=== PATIENT | female | born 1960 | race Caucasian/White ===

== ENCOUNTER → 2016-11-02 | Outpatient (CLI) | payer BC, MEDICARE | LOC: LAB 18:01 | PROVIDERS: ATTEND Internal Medicine Interventional Cardiology | DX: Z53.9 Procedure and treatment not carried out, unspecified reason (principal) ==

== ENCOUNTER → 2016-11-30 | Outpatient (CLI) | payer BC, MEDICARE ==
--- NOTE | 2016-11-30 09:43 | MM ---
Reason for exam: follow-up at short interval from prior study. Last mammogram was performed 8 months ago. History: Patient is postmenopausal. Family history of premenopausal breast cancer in paternal aunt at age 40 and premenopausal breast cancer in maternal cousin. Benign MG stereo VAD BX RT of the right breast, April 25, 2016. Benign MG stereo VAD BX RT of the right breast, April 25, 2016. Cancelled Left Mammotome of the left breast, August 01, 2007. Took hormonal contraceptives for 5 years beginning at age 20. Physical Findings: Nurse did not find any significant physical abnormalities on exam. MG 3D Diag Mammo W/Cad RT CC and MLO view(s) were taken of the right breast. Prior study comparison: April 13, 2016, right breast MG work up mamm w CAD RT. April 08, 2016, bilateral MG 3d screening mammo w/cad. January 21, 2013, bilateral digital screening mammo w/CAD. The breast tissue is heterogeneously dense. This may lower the sensitivity of mammography. Previous mammotome biopsy in the right breast x 2. No significant new findings when compared with previous films. These results were verbally communicated with the patient and result sheet given to the patient on 11/30/16. ASSESSMENT: Negative, BI-RAD 1 RECOMMENDATION: Return to routine screening mammogram schedule for both breasts. Back on schedule for March 2017.
== END ==
LOC: RADUSWWP 08:23
PROVIDERS: ATTEND Surgery
DX: R92.8 Other abnormal and inconclusive findings on diagnostic imaging of breast (principal)
CPT/HCPCS: G0206; G0279

== ENCOUNTER → 2017-06-19 | Outpatient (CLI) | payer BC, MEDICARE ==
--- NOTE | 2017-06-21 09:29 | MM ---
Reason for exam: screening (asymptomatic). Last mammogram was performed 7 months ago. History: Patient is postmenopausal. Family history of premenopausal breast cancer in paternal aunt at age 40 and premenopausal breast cancer in maternal cousin. Benign MG stereo VAD BX RT of the right breast, April 25, 2016. Benign MG stereo VAD BX RT of the right breast, April 25, 2016. Cancelled Left Mammotome of the left breast, August 01, 2007. Took hormonal contraceptives for 5 years beginning at age 20. Physical Findings: A clinical breast exam by your physician is recommended on an annual basis and results should be correlated with mammographic findings. MG 3D Screening Mammo W/Cad Bilateral CC and MLO view(s) were taken. Prior study comparison: November 30, 2016, right breast MG 3d diag mammo w/cad RT. April 13, 2016, right breast MG work up mamm w CAD RT. April 08, 2016, bilateral MG 3d screening mammo w/cad. March 17, 2015, left breast MG work up mamm w CAD LT. January 21, 2013, bilateral digital screening mammo w/CAD. The breast tissue is heterogeneously dense. This may lower the sensitivity of mammography. Previous mammotome biopsy within the right breast x 2. No significant changes when compared with prior studies. ASSESSMENT: Negative, BI-RAD 1 RECOMMENDATION: Routine screening mammogram of both breasts in 1 year.
== END | disposition home or self-care (01) ==
LOC: RADMAMWWP 11:09
PROVIDERS: ATTEND Family Medicine
DX: Z12.31 Encounter for screening mammogram for malignant neoplasm of breast (principal)
CPT/HCPCS: 77063; G0202

== ENCOUNTER → 2017-12-28 | Outpatient (CLI) | payer BC, MEDICARE ==
--- NOTE | 2017-12-28 14:03 | USB ---
Reason for exam: clinical finding. History: Patient is postmenopausal. Family history of premenopausal breast cancer in paternal aunt at age 40 and premenopausal breast cancer in maternal cousin. Benign MG stereo VAD BX RT of the right breast, April 25, 2016. Benign MG stereo VAD BX RT of the right breast, April 25, 2016. Cancelled Left Mammotome of the left breast, August 01, 2007. Took hormonal contraceptives for 5 years beginning at age 20. Indicated problem(s): lump or thickening in the right breast. Physical Findings: Nurse Summary: right breast palpable 12 o'clock 0.5 x 1cm, movable, non-tender, superficial (nurse ts). US Breast RT Right complete breast ultrasound includes all four quadrants, the retroareolar region and axilla. Finding demonstrates a 0.5 x 0.3 x 0.5cm hypoechoic, lymph node at 7 o'clock. Appears overall benign. Possible hemangioma, unencapsulated lipoma or fat necrosis and is localized within the skin. Clinical management. These results were verbally communicated with the patient and result sheet given to the patient on 12/28/17. ASSESSMENT: Benign, BI-RAD 2 RECOMMENDATION: Return to routine screening mammogram schedule for both breasts. Manage patient on a clinical basis.
== END | disposition home or self-care (01) ==
LOC: RADUSWWP 09:06
PROVIDERS: ATTEND Surgery
DX: N63.10 Unspecified lump in the right breast, unspecified quadrant (principal)

== ENCOUNTER → 2018-04-17 | Outpatient (CLI) | payer BC, MEDICARE ==
--- NOTE | 2018-04-17 13:08 | XR ---
Cervical spine HISTORY: Headache, neck pain 5 views of the cervical spine Oblique images aren't not optimal to assess for foraminal encroachment at the lower levels. Minimal r etrolisthesis grade 1 C6-7, there is associated loss of disc height, spondylosis. Prevertebral soft t issues are normal. Cervical vertebral bodies show preserved height and alignment, bone mineralization . C7-T1 not seen. IMPRESSION: Degenerative disc disease.
== END | disposition home or self-care (01) ==
LOC: RADXRYALE 09:35
PROVIDERS: ATTEND Family Medicine
DX: M50.30 Other cervical disc degeneration, unspecified cervical region (principal)
CPT/HCPCS: 72050

== ENCOUNTER → 2018-06-25 | Outpatient (CLI) | payer BC, MEDICARE ==
--- NOTE | 2018-06-25 08:35 | CT ---
EXAMINATION TYPE: CT cervical spine w con DATE OF EXAM: 06/25/2018 COMPARISON: Radiograph 04/17/2018 HISTORY: 58-year-old female right-sided neck pain with headaches, Cervicalgia TECHNIQUE: Contiguous axial scanning of the cervical spine performed with IV Contrast, patient inject ed with 100 mL of Isovue 300. Coronal/sagittal reconstructions performed. CT DLP: 556.3 mGycm Automated exposure control for dose reduction was used. FINDINGS: No craniocervical junction abnormality, predental space widening, or prevertebral soft tissue swellin g. Mild to moderate disc space narrowing at C6-C7 with endplate sclerosis and disc osteophyte complex fo rmation. This likely contributes to mild narrowing of the spinal canal. Overall assessment of the spinal canal is limited due to patient body habitus and elevated shoulders. Uncovertebral joint and facet arthropathy scattered throughout, particularly severe on the right at C 3-C4 which there is subarticular lucency present. No marginal type erosions are seen. Moderate on the left at C3-C4 and C6-C7. No acute fracture of the cervical spine. Retropharyngeal course of the left ICA. Changes result in moderate left and mild right neuroforaminal stenosis at C6/C7. IMPRESSION: 1. MODERATE DISC/ENDPLATE DEGENERATIVE CHANGE PARTICULARLY AT C6-C7 WITH MILD SPINAL CANAL STENOSIS A T THIS LEVEL. 2. SCATTERED FACET AND UNCOVERTEBRAL JOINT ARTHROPATHY THOUGH SEVERE ON THE RIGHT AT C3-C4. THE SUBAR TICULAR LUCENCY HERE IS SUSPECTED TO RELATE TO PROMINENT DEGENERATIVE CYSTIC CHANGE RATHER THAN EROSI ON FROM AN INFLAMMATORY ARTHROPATHY. 3. MODERATE LEFT AND MILD RIGHT NEUROFORAMINAL STENOSIS AT C6-C7.
== END | disposition home or self-care (01) ==
LOC: RADCTMAIN 07:07
PROVIDERS: ATTEND Family Medicine
DX: M48.02 Spinal stenosis, cervical region (principal); M99.71 Connective tissue and disc stenosis of intervertebral foramina of cervical region; M47.812 Spondylosis without myelopathy or radiculopathy, cervical region; M46.92 Unspecified inflammatory spondylopathy, cervical region; G44.209 Tension-type headache, unspecified, not intractable
CPT/HCPCS: 72126; Q9967

== ENCOUNTER → 2018-10-17 | Outpatient (CLI) | payer BC, MEDICARE ==
--- NOTE | 2018-10-17 12:18 | MM ---
Reason for exam: screening (asymptomatic). Last mammogram was performed 1 year and 4 months ago. History: Patient is postmenopausal. Family history of premenopausal breast cancer in paternal aunt at age 40 and premenopausal breast cancer in maternal cousin. Benign MG stereo VAD BX RT of the right breast, April 25, 2016. Benign MG stereo VAD BX RT of the right breast, April 25, 2016. Cancelled Left Mammotome of the left breast, August 01, 2007. Took hormonal contraceptives for 5 years beginning at age 20. Physical Findings: A clinical breast exam by your physician is recommended on an annual basis and results should be correlated with mammographic findings. MG 3D Screening Mammo W/Cad Bilateral CC and MLO view(s) were taken. Prior study comparison: June 19, 2017, bilateral MG 3d screening mammo w/cad. November 30, 2016, right breast MG 3d diag mammo w/cad RT. The breast tissue is heterogeneously dense. This may lower the sensitivity of mammography. No suspicious calcifications are seen. Previous mammotome biopsy in the right breast. Focal asymmetry upper inner left breast. This finding is changed when compared with previous exams. ASSESSMENT: Incomplete: need additional imaging evaluation, BI-RAD 0 RECOMMENDATION: Special view mammogram of the left breast. If lesion persists on supplemental views, image directed ultrasound is recommended. [facility] will attempt to contact patient to return for supplemental views and ultrasound if indicated.
== END | disposition home or self-care (01) ==
LOC: RADMAMWWP 07:28
PROVIDERS: ATTEND Family Medicine
DX: Z12.31 Encounter for screening mammogram for malignant neoplasm of breast (principal)
CPT/HCPCS: 77063; 77067

== ENCOUNTER → 2018-10-18 | Outpatient (CLI) | payer BC, MEDICARE ==
--- NOTE | 2018-10-18 11:30 | MM ---
Reason for exam: additional evaluation requested from abnormal screening. Last mammogram was performed less than 1 month ago. History: Patient is postmenopausal. Family history of premenopausal breast cancer in paternal aunt at age 40 and premenopausal breast cancer in maternal cousin. Benign MG stereo VAD BX RT of the right breast, April 25, 2016. Benign MG stereo VAD BX RT of the right breast, April 25, 2016. Cancelled Left Mammotome of the left breast, August 01, 2007. Took hormonal contraceptives for 5 years beginning at age 20. Physical Findings: Nurse Summary: 0.5cm nodule in the right breast at 1 o'clock (nurse mj). MG 3D Work Up W/Cad LT Spot compression CC, spot compression MLO, and LM view(s) were taken of the left breast. Prior study comparison: October 17, 2018, bilateral MG 3d screening mammo w/cad. June 19, 2017, bilateral MG 3d screening mammo w/cad. The breast tissue is heterogeneously dense. This may lower the sensitivity of mammography. A couple nodular asymmetries are unchanged back to 2016. Possible distortion 12 o'clock becomes less defined and similar to priors on spot 3D. Superficial nurse palpated finding 1 o'clock right breast. These results were verbally communicated with the patient and result sheet given to the patient on 10/18/18. ASSESSMENT: Incomplete: need additional imaging evaluation, BI-RAD 0 RECOMMENDATION: Ultrasound of both breasts. (right targeted to palpable, left 10-2 o'clock)
--- NOTE | 2018-10-18 11:35 | USB ---
Reason for exam: additional evaluation requested from abnormal screening. History: Patient is postmenopausal. Family history of premenopausal breast cancer in paternal aunt at age 40 and premenopausal breast cancer in maternal cousin. Benign MG stereo VAD BX RT of the right breast, April 25, 2016. Benign MG stereo VAD BX RT of the right breast, April 25, 2016. Cancelled Left Mammotome of the left breast, August 01, 2007. Took hormonal contraceptives for 5 years beginning at age 20. US Breast Workup Limited LU Right limited breast ultrasound including focal area of concern, retroareolar and axilla demonstrates a 0.7 x 0.5 x 0.3cm oval, solid lesion at 1 o'clock BB centered in the dermis, stable, benign, dermatological referral if symptomatic and a 0.3 x 0.3 x 0.3cm oval, cystic, benign lesion at 3 o'clock. Scanned 12-3 o'clock. Left limited breast ultrasound including focal area of concern, retroareolar and axilla demonstrates no cystic or solid lesion seen. Scanned 10-3 o'clock. These results were verbally communicated with the patient and result sheet given to the patient on 10/18/18. ASSESSMENT: Probably benign, BI-RAD 3 RECOMMENDATION: Follow-up diagnostic mammogram of the left breast in 6 months. Manage on a clinical basis with regard to stable palpable dermal lesion 1 o'clock right breast. Dermatological referral if symptomatic.
== END | disposition home or self-care (01) ==
LOC: RADMAMWWP 07:50
PROVIDERS: ATTEND Family Medicine
DX: R92.8 Other abnormal and inconclusive findings on diagnostic imaging of breast (principal)
CPT/HCPCS: 77061; 77065

== ENCOUNTER → 2018-12-17 | Outpatient (CLI) | payer BC, MEDICARE ==
[2018-12-17 10:33] VITALS: BMI 35.1
== END ==
LOC: DBWHC3 09:00
PROVIDERS: ATTEND Family Medicine
DX: E78.2 Mixed hyperlipidemia (principal); R73.03 Prediabetes
CPT/HCPCS: 97802

== ENCOUNTER → 2020-03-30 | Outpatient (CLI) | payer BC, MEDICARE ==
--- NOTE | 2020-03-30 14:22 | MM ---
Reason for exam: additional evaluation requested from prior study. Last mammogram was performed 1 year and 5 months ago. History: Patient is postmenopausal. Family history of premenopausal breast cancer in paternal aunt at age 40 and premenopausal breast cancer in maternal cousin. Benign MG stereo VAD BX RT of the right breast, April 25, 2016. Benign MG stereo VAD BX RT of the right breast, April 25, 2016. Cancelled Left Mammotome of the left breast, August 01, 2007. Took hormonal contraceptives for 5 years beginning at age 20. Physical Findings: Nurse did not find any significant physical abnormalities on exam. MG 3D Diag Mammo W/Cad LU Bilateral CC and MLO view(s) were taken. Prior study comparison: October 18, 2018, left breast MG 3d work up w/cad LT. October 17, 2018, bilateral MG 3d screening mammo w/cad. The breast tissue is heterogeneously dense. This may lower the sensitivity of mammography. No significant new findings when compared with previous films. These results were verbally communicated with the patient and result sheet given to the patient on 03/30/20. ASSESSMENT: Benign, BI-RAD 2 RECOMMENDATION: Routine screening mammogram of both breasts in 1 year.
== END | disposition home or self-care (01) ==
LOC: RADMAMWWP 13:41
PROVIDERS: ATTEND Family Medicine
DX: R92.0 Mammographic microcalcification found on diagnostic imaging of breast (principal)
CPT/HCPCS: 77062; 77066

== ENCOUNTER → 2020-04-20 | Outpatient (CLI) | payer BC, MEDICARE ==
--- NOTE | 2020-04-20 13:30 | XR ---
EXAMINATION TYPE: XR Hip Complete RT DATE OF EXAM: 04/20/2020 COMPARISON: NONE HISTORY: 60-year-old female pain right hip and SI joint area after strain 3 months ago. [id number], M461 RT HIP PAIN, SACROILIITIS TECHNIQUE: 2 views FINDINGS: There is some degenerative subarticular sclerosis and spurring at the right SI joint. Right hip joint space appears maintained. No acute fracture, subluxation, dislocation seen. IMPRESSION: There could be mild to moderate right SI joint OA. The right hip joint appears intact.
== END | disposition home or self-care (01) ==
LOC: RADXRYALE 10:24
PROVIDERS: ATTEND Family Medicine
DX: M25.551 Pain in right hip (principal); M46.1 Sacroiliitis, not elsewhere classified
CPT/HCPCS: 73502

== ENCOUNTER → 2021-04-15 | Outpatient (CLI) | payer BC, MEDICARE ==
--- NOTE | 2021-04-16 12:14 | MM ---
Reason for exam: screening (asymptomatic). Last mammogram was performed 1 year and 1 month ago. History: Patient is postmenopausal. Family history of premenopausal breast cancer in paternal aunt at age 40 and premenopausal breast cancer in maternal cousin. Benign MG stereo VAD BX RT of the right breast, April 25, 2016. Benign MG stereo VAD BX RT of the right breast, April 25, 2016. Cancelled Left Mammotome of the left breast, August 01, 2007. Took hormonal contraceptives for 5 years beginning at age 20. Physical Findings: A clinical breast exam by your physician is recommended on an annual basis and results should be correlated with mammographic findings. MG 3D Screening Mammo W/Cad Bilateral CC and MLO view(s) were taken. Prior study comparison: March 30, 2020, bilateral MG 3d diag mammo w/cad LU. October 18, 2018, left breast MG 3d work up w/cad LT. June 19, 2017, bilateral MG 3d screening mammo w/cad. Previous mammotome biopsy in the right breast. No significant changes when compared with prior studies. ASSESSMENT: Benign, BI-RAD 2 RECOMMENDATION: Routine screening mammogram of both breasts in 1 year.
== END | disposition home or self-care (01) ==
LOC: RADMAMWWP 15:37
PROVIDERS: ATTEND Family Medicine
DX: Z12.31 Encounter for screening mammogram for malignant neoplasm of breast (principal); Z78.0 Asymptomatic menopausal state; Z80.3 Family history of malignant neoplasm of breast; Z79.3 Long term (current) use of hormonal contraceptives
CPT/HCPCS: 77063; 77067

== ENCOUNTER → 2022-07-13 | Outpatient (CLI) | payer MEDICARE, BC ==
--- NOTE | 2022-07-13 08:59 | CT ---
EXAMINATION TYPE: CT iac wo con DATE OF EXAM: 07/13/2022 COMPARISON: NONE HISTORY: Tinnitus, Bilateral CT DLP: 150 mGycm. Automated Exposure Control for Dose Reduction was Utilized. TECHNIQUE: CT scan of internal auditory canal is performed without contrast, thin cut axial images ar e obtained, coronal reformatted images are also reviewed. FINDINGS: The external auditory canals are patent bilaterally. Mastoid air cells show no evidence of abnormal opacification bilaterally. The middle ear ossicles are symmetric and unremarkable. There is no evidence of suspicious surroundi ng soft tissue density to suggest cholesteatoma. The scutum is preserved bilaterally. The cochlea and the semicircular canals are symmetric and unremarkable. Satisfactory bony over coveri ng of the superior semicircular canal is noted bilaterally. No dehiscence is seen. Vestibular aqueduc t and internal carotid canal appear unremarkable. Temporomandibular joints are maintained bilaterally. Visualized paranasal sinuses are grossly clear. Visualized portion brain parenchyma is felt within normal limits. IMPRESSION: No significant abnormality seen to account for patient's symptoms of bilateral tinnitus.
== END | disposition home or self-care (01) ==
LOC: RADCTMAIN 07:13
PROVIDERS: ATTEND Family Medicine
DX: H93.13 Tinnitus, bilateral (principal); H92.03 Otalgia, bilateral
CPT/HCPCS: 70480

== ENCOUNTER → 2022-07-27 | Outpatient (CLI) | payer MEDICARE, BC ==
--- NOTE | 2022-07-28 16:52 | MM ---
Reason for Exam: Screening (asymptomatic). Last mammogram was performed 1 year(s) and 3 month(s) ago. Patient History: Menarche at age 14. First Full-Term at age 28. Left ovary removed at age 48. Hysterectomy at age 48. Postmenopausal. Hormonal Contraceptives for 5 years from age 20 until age 27. 04/25/2016, Benign Core Biopsy on the right side. 04/25/2016, Benign Core Biopsy on the right side. 08/01/2007, Cancelled Left Mammotome on the left side. Maternal cousin had breast cancer. Paternal aunt had breast cancer, age 40. Risk Values: Sonali 5 year model risk: 2.4%. NCI Lifetime model risk: 11.9%. Prior Study Comparison: 03/10/2015 Bilateral Screening Mammogram, [facility]. 03/17/2015 Left Diagnostic Mammogram, [facility]. 04/08/2016 Bilateral Screening Mammogram, [facility]. 04/13/2016 Right Diagnostic Mammogram, [facility]. 11/30/2016 Right Diagnostic Mammogram, [facility]. 06/19/2017 Bilateral Screening Mammogram, [facility]. 12/28/2017 Right Diagnostic Ultrasound, [facility]. 10/17/2018 Bilateral Screening Mammogram, [facility]. 10/18/2018 Left Diagnostic Mammogram, [facility]. 10/18/2018 Bilateral Diagnostic Ultrasound, [facility]. 03/30/2020 Bilateral Diagnostic Mammogram, [facility]. 04/15/2021 Bilateral Screening Mammogram, [facility]. Tissue Density: The breast tissue is heterogeneously dense. This may lower the sensitivity of mammography. Findings: Analyzed By CAD. Pattern appears stable. No suspicious groups of microcalcifications, spiculated or lobular masses, architectural distortion or other secondary signs of malignancy are mammographically apparent. Overall Assessment: Benign, BI-RAD 2 Management: Screening Mammogram of both breasts in 1 year. A negative mammogram report should not preclude additional follow up of suspicious palpable abnormalities. Patient should continue monthly self breast exam. A clinical breast exam by your physician is recommended on an annual basis and results should be correlated with mammographic findings. Electronically signed and approved by: Bogdan Ibrahim D.O. Radiologis
== END | disposition home or self-care (01) ==
LOC: RADMAMWWP 16:46
PROVIDERS: ATTEND Family Medicine
DX: Z12.31 Encounter for screening mammogram for malignant neoplasm of breast (principal); Z78.0 Asymptomatic menopausal state; Z80.3 Family history of malignant neoplasm of breast; Z98.890 Other specified postprocedural states
CPT/HCPCS: 77063; 77067

== ENCOUNTER → 2022-08-24 | Outpatient (CLI) | payer MEDICARE, BC ==
--- NOTE | 2022-08-24 11:36 | US ---
EXAMINATION TYPE: US kidneys/renal and bladder DATE OF EXAM: 08/24/2022 COMPARISON: CT, US CLINICAL HISTORY: [id number]. Hematuria, back pain. Hx liver cyst seen on prior CT 2013. EXAM MEASUREMENTS: Right Kidney: 10.6 x 6.3 x 5.3 cm Left Kidney: 11.8 x 5.2 x 6.0 cm Right Kidney: Hyperechoic focus seen: 0.5 x 0.5 x 0.3 cm. Left Kidney: Hyperechoic focus seen: 0.4 x 0.5 x 0.4 cm. -Anechoic area seen lower pole measurin.6 x 1.7 x 0.9 cm. Bladder: Appears anechoic. Bilateral Jets seen: Yes Incidental finding-multiple septated anechoic areas seen within the liver, hx liver cyst on CT 2013 . IMPRESSION: 1. No hydronephrosis 2. Nonobstructive bilateral renal calculi. 3. Renal sinus cyst within the lower pole of the left kidney. 4. Multiple septated cysts demonstrated within the liver.
== END | disposition home or self-care (01) ==
LOC: RADUSWWP 10:53
PROVIDERS: ATTEND Family Medicine
DX: N20.0 Calculus of kidney (principal); N28.1 Cyst of kidney, acquired; N30.01 Acute cystitis with hematuria; K76.89 Other specified diseases of liver
CPT/HCPCS: 76770

== ENCOUNTER → 2022-12-13 | Outpatient (CLI) | payer MEDICARE, BC ==
--- NOTE | 2022-12-13 15:34 | XR ---
EXAMINATION TYPE: XR KUB DATE OF EXAM: 12/13/2022 Comparison: None Clinical History: 62-year-old female follow-up kidney stones, N20.0 Calculus kidney Findings: Bowel content partially obscures the renal shadows. Possible 9 and 8 mm left renal calculi. There is moderate overall stool burden. Nonobstructive bowel gas pattern. Levoconvex curvature lumbar spine. Impression: Bowel content largely obscures the renal shadows. Moderate stool burden. Possible 9 and 8 mm left marycruz al calculi.
== END | disposition home or self-care (01) ==
LOC: RADXRMAIN 08:32
PROVIDERS: ATTEND Urology
DX: N20.0 Calculus of kidney (principal); R19.5 Other fecal abnormalities
CPT/HCPCS: 74018

== ENCOUNTER → 2022-12-23 | Outpatient (CLI) | payer MEDICARE, BC ==
--- NOTE | 2022-12-26 20:14 | CT ---
EXAMINATION TYPE: CT abdomen pelvis wo con CT DLP: 587.3 mGycm, Automated exposure control for dose reduction was used. DATE OF EXAM: 12/23/2022 4:55 PM COMPARISON: CT abdomen pelvis most recent from 05/20/2010, KUB radiograph 12/13/2022, renal ultrasound 08/24/2022. CLINICAL INDICATION:Female, 62 years old with history of N20.0 CALCULUS OF KIDNEY; Bilateral Calculi of kidneys. TECHNIQUE: Renal stone protocol CT of the abdomen and pelvis without IV or oral contrast. Lack of IV or oral contrast limits evaluation of solid and hollow organ viscera. Coronal and sagittal reformats were performed. FINDINGS: LOWER CHEST: The visualized lungs are clear. Mild cardiomegaly. Mild coronary arterial calcifications partially visualized. Aortic valvular calcifications. ABDOMEN LIVER: Multiple low attenuating cysts identified throughout the liver the largest measuring up to 7.4 cm. GALLBLADDER AND BILE DUCTS: Unremarkable. PANCREAS: Unremarkable noncontrast appearance. SPLEEN: Unremarkable noncontrast appearance. ADRENAL GLANDS: Unremarkable noncontrast appearance. KIDNEYS AND URETERS: No evidence of hydronephrosis. Nonobstructive 2 mm left mid kidney calculus. No ureteral calculi identified. PELVIS BLADDER: Unremarkable REPRODUCTIVE: The uterus is surgically absent. ABDOMEN & PELVIS STOMACH AND BOWEL: Small hiatal hernia, duodenum is unremarkable. No focal wall thickening or surroun ding inflammatory changes. Mild colonic stool burden. No evidence of bowel obstruction. PERITONEUM: No evidence of pneumoperitoneum or free fluid. VASCULATURE: Mild atherosclerotic calcifications are present throughout the abdominal aorta and its b ranches. No evidence of aortic aneurysm. MUSCULOSKELETAL: No acute osseous abnormalities. Mild disc degeneration changes are present throughou t the thoracolumbar spine. Mild levo scoliotic curvature of the lumbar spine. LYMPH NODES: No gross evidence for lymphadenopathy. SOFT TISSUE/ABDOMINAL WALL: Small fat filled supraumbilical epigastric hernias. IMPRESSION: 1. No evidence of obstructive uropathy. 2. Nonobstructive 2 mm left renal calculus. 3. Multiple hepatic cysts.
== END | disposition home or self-care (01) ==
LOC: RADCTMAIN 16:23
PROVIDERS: ATTEND Urology
DX: N20.0 Calculus of kidney (principal); K76.89 Other specified diseases of liver
CPT/HCPCS: 74176

== ENCOUNTER → 2023-12-20 | Outpatient (CLI) | payer MEDICARE, BC ==
--- NOTE | 2023-12-20 12:39 | XR ---
EXAMINATION TYPE: XR cervical spine comp DATE OF EXAM: 12/20/2023 11:48 AM CLINICAL INDICATION:Female, 63 years old with history of H92.03 OTALGIA, BILATERAL; [facility] COMPARISON: 04/17/2018 TECHNIQUE: The cervical spine was imaged in frontal, lateral, odontoid and bilateral oblique. FINDINGS: The osseous structures show normal alignment without evidence of an acute fracture. There are osteoph ytes noted throughout the cervical spine on the anterior and lateral aspects of the vertebral bodies. The intervertebral disk spaces are narrowed at multiple levels. Pedicles are intact. Soft tissues a re within normal limits. The odontoid appears intact. IMPRESSION: 1. No fracture or dislocation. 2. Mild to moderate degenerative disc disease changes of the cervical spine.
== END | disposition home or self-care (01) ==
LOC: RADXRMAIN 11:23
PROVIDERS: ATTEND Otolaryngology
DX: M50.30 Other cervical disc degeneration, unspecified cervical region (principal); H92.03 Otalgia, bilateral
CPT/HCPCS: 72050

== ENCOUNTER → 2024-05-22 | Outpatient (CLI) | payer MEDICARE, BC ==
--- NOTE | 2024-05-23 09:51 | MM ---
Reason for Exam: Screening (asymptomatic). Last mammogram was performed 1 year(s) and 10 month(s) ago. Patient History: Menarche at age 14. First Full-Term at age 28. Left ovary removed at age 48. Hysterectomy at age 48. Postmenopausal. Hormonal Contraceptives for 5 years from age 20 until age 27. 04/25/2016, Benign Core Biopsy on the right side. 04/25/2016, Benign Core Biopsy on the right side. 08/01/2007, Cancelled Left Mammotome on the left side. Maternal cousin had breast cancer. Paternal aunt had breast cancer, age 40. Risk Values: Sonali 5 year model risk: 2.6%. NCI Lifetime model risk: 11.3%. Prior Study Comparison: 03/30/2020 Bilateral Diagnostic Mammogram, [facility]. 04/15/2021 Bilateral Screening Mammogram, [facility]. 07/27/2022 Bilateral MG 3D screening mammo w/cad, [facility]. Tissue Density: The breasts are heterogeneously dense, which may obscure small masses. Findings: Analyzed By CAD. There is no suspicious group of microcalcifications or new suspicious mass in either breast. Overall Assessment: Benign, BI-RAD 2 Management: Screening Mammogram of both breasts in 1 year. . Patient should continue monthly self-breast exams. A clinical breast exam by your physician is recommended on an annual basis. This exam should not preclude additional follow-up of suspicious palpable abnormalities. Note on Sonali scores and lifetime risk: 1. A Sonali score greater than 3% is considered moderate risk. If this is the case, consider specialist referral to assess eligibility for a risk reducing agent. 2. If overall lifetime risk for the development of breast cancer is 20% or higher, the patient may qualify for future screening with alternating mammogram and breast MRI. [facility], , 05/23/2024 9:48 AM. Electronically signed and approved by: John Palacio M.D. Radiologis
== END | disposition home or self-care (01) ==
LOC: RADMAMWWP 16:11
PROVIDERS: ATTEND Family Medicine
CPT/HCPCS: 77063; 77067

== ENCOUNTER 2025-02-27 15:41 | Emergency (ER) | payer BC, MEDICARE ==
--- NOTE | 2025-02-27 16:48 | ED ---
General Adult HPI - General Chief complaint: Skin/Abscess/Foreign Body Stated complaint: Insect bite Time Seen by Provider: 02/27/25 15:55 Source: patient Mode of arrival: ambulatory Limitations: no limitations - History of Present Illness Initial comments: Dictation was produced using impok dictation software. please excuse any grammatical, word or spelling errors. Chief Complaint: 65-year-old female with malaise after insect bite History of Present Illness: Patient 65-year-old female was working outside yesterday afternoon when she felt the bite in her left anterior distal thigh. Went into the house took a shower initially she states it looked like a bruise. This morning she woke up and looked like there was some redness of surrounding the area. States that she feels malaise. Denies any other complaints. The ROS documented in this emergency department record has been reviewed and confirmed by me. Those systems with pertinent positive or negative responses have been documented in the HPI. All other systems are other negative and/or noncontributory. - Related Data Home Medications Medication Instructions Recorded Confirmed oxyCODONE-APAP 10-325MG [Percocet 1 tab PO Q4H PRN 12/04/13 05/24/16 10-325 mg] Torsemide [Demadex] 20 mg PO BID PRN 07/08/14 05/24/16 Potassium Chloride [Klor-Con 10 ER] 10 meq PO DAILY PRN 05/12/15 05/24/16 Pregabalin [Lyrica] 150 mg PO TID 12/29/15 05/24/16 Previous Rx's Medication Instructions Recorded traZODone HCL [Desyrel] 50 mg PO HS #30 tab 05/17/16 Pregabalin [Lyrica] 150 mg PO TID #90 capsule 05/24/16 Cephalexin [Keflex] 500 mg PO Q6HR 5 Days #20 cap 02/27/25 Allergies Allergy/AdvReac Type Severity Reaction Status Date / Time iodine Allergy Rash/Hives Verified 02/27/25 15:49 silver Allergy Rash/Hives Verified 02/27/25 15:49 Sulfa (Sulfonamide Allergy Rash/Hives Verified 02/27/25 15:49 Antibiotics) Review of Systems ROS Statement: Those systems with pertinent positive or pertinent negative responses have been documented in the HPI. ROS Other: All systems not noted in ROS Statement are negative. Past Medical History Past Medical History: Asthma Additional Past Medical History / Comment(s): osteomyelitis, bowel obstruction History of Any Multi-Drug Resistant Organisms: None Reported Past Surgical History: Section Additional Past Surgical History / Comment(s): Left foot tendon repair Aug 2012, manipulation, scar tissue removal, incision and drainage. injury september 2011. skin graft Lt ankle 11-23-2015 Past Anesthesia/Blood Transfusion Reactions: No Reported Reaction Past Psychological History: No Psychological Hx Reported Smoking Status: Never smoker Past Alcohol Use History: Occasional Past Drug Use History: None Reported - Past Family History Father Family Medical History: Cancer, Diabetes Mellitus Mother Family Medical History: Diabetes Mellitus General Exam - General Exam Comments Initial Comments: PHYSICAL EXAM: General Impression: Alert and oriented x3, not in acute distress HEENT: Normocephalic atraumatic, extra-ocular movements intact, pupils equal and reactive to light bilaterally, mucous membranes moist. Cardiovascular: Heart regular rate and rhythm Chest: Able to complete full sentences, no retractions, no tachypnea Abdomen: abdomen soft, non-tender, non-distended, no organomegaly Musculoskeletal: Pulses present and equal in all extremities, no peripheral edema Motor: no focal deficits noted Neurological: CN II-XII grossly intact, no focal motor or sensory deficits noted Skin: Small 10 x 5 cm of nonindurated erythema at the medial part of the left knee skin Psych: Normal affect and mood Limitations: no limitations Course Vital Signs 02/27/25 15:42 Temperature 98.1 F Pulse Rate 88 Respiratory 18 Rate Blood Pressure 215/93 O2 Sat by Pulse 97 Oximetry Medical Decision Making - Medical Decision Making Was pt. sent in by a medical professional or institution (, PA, CHANNELING MACHINE RUNNER, urgent care, hospital, or snf...) When possible be specific @ -No Did you speak to anyone other than the patient for history (EMS, parent, family, police, friend...)? What history was obtained from this source @ -No Did you review nursing and triage notes (agree or disagree)? Why? @ -I reviewed and agree with nursing and triage notes Were old charts reviewed (outside hosp., previous admission, EMS record, old EKG, old radiological studies, urgent care reports/EKG's, snf records)? Report findings @ -No old charts were reviewed Differential Diagnosis (chest pain, altered mental status, abdominal pain women, abdominal pain men, vaginal bleeding, musculoskeletal, weakness, fever, dyspnea, syncope, headache, dizziness, GI bleed, back pain, seizure, CVA, palpatations, mental health)? @ -Contact dermatitis, cellulitis, psoriasis EKG interpreted by me (3pts min.). @ -See above X-rays interpreted by me (1pt min.). @ -Not done CT interpreted by me (1pt min.). @ -None done U/S interpreted by me (1pt. min.). @ -None done What testing was considered but not performed or refused? (CT, X-rays, U/S, labs)? Why? @ -None What meds were considered but not given or refused? Why? @ -None Was smoking cessation discussed for >3mins.? @ -No Were there social determinants of health that impacted care today? How? (Homelessness, low income, unemployed, alcoholism, drug addiction, transportation, low edu. Level, literacy, decrease access to med. care, nursing home, rehab)? @ -No Was there de-escalation of care discussed even if they declined (Discuss DNR or withdrawal of care, Hospice)? DNR status @ -No What co-morbidities impacted this encounter? (DM, HTN, Smoking, COPD, CAD, Cancer, CVA, ARF, Chemo, Hep., AIDS, mental health diagnosis, sleep apnea, morbid obesity)? @ -None Was patient admitted / discharged? Hospital course, mention meds given and route, prescriptions, significant lab abnormalities, going to OR and other pertinent info. @ -65-year-old female presents to the emergency department with acute rash to the left leg after she reports being bit by a bug. Vital signs stable. Physical examination is benign. Labs are unremarkable. Patient prescription for Keflex and vies follow with primary care doctor for cellulitis. Did you discuss the management of the patient with other professionals (professionals i.e. , PA, CHANNELING MACHINE RUNNER, lab, RT, psych nurse, social human services assistants, probate lawyer, teacher, building drafting officer, case filler)? Give summary @ -No Was critical care preformed (if so, how long)? @ -No Undiagnosed new problem with uncertain prognosis? @ -No Drug Therapy requiring intensive monitoring for toxicity (Heparin, Nitro, Insulin, Cardizem)? @ -No Were any procedures done? @ -No Diagnosis/symptom? Acute, or Chronic, or Acute on Chronic? Uncomplicated (without systemic symptoms) or Complicated (systemic symptoms)? @ -Cellulitis Side effects of treatment? @ -No Exacerbation, Progression, or Severe Exacerbation? @ -No Poses a threat to life or bodily function? How? (Chest pain, [place], [place], pneumonia, PE, COPD, DKA, ARF, appy, cholecystitis, CVA, Diverticulitis, Homicidal, Suicidal, threat to staff... and all critical care pts) @ -No - Lab Data Result diagrams: 02/27/25 17:48 02/27/25 17:48 Lab Results 02/27/25 02/27/25 Range/Units 17:48 17:48 WBC 6.54 (4.50-10.00) 10*3/uL RBC 3.90 L (4.10-5.20) 10*6/uL Hgb 12.7 (12.0-15.0) g/dL Hct 36.2 L (37.2-46.3) % MCV 92.8 (80.0-97.0) fL MCH 32.6 H (27.0-32.0) pg MCHC 35.1 (32.0-37.0) g/dL Plt Count 255 (140-440) 10*3/uL MPV 8.3 L (9.5-12.2) fL Immature Gran % (Auto) 0.3 % Neutrophils % 54.4 % Lymphocytes % 38.4 % Monocytes % 5.5 % Eosinophils % 0.8 % Basophils % 0.6 % Immature Gran # 0.02 (0.00-0.04) 10*3/uL Neutrophils # 3.56 (1.80-7.70) 10*3/uL Lymphocytes # 2.51 (0.90-5.00) 10*3/uL Monocytes # 0.36 (0.20-1.00) 10*3/uL Eosinophils # 0.05 (0.04-0.35) 10*3/uL Basophils # 0.04 (0.00-0.10) 10*3/uL Sodium 140 (137-145) mmol/L Potassium 3.5 (3.5-5.1) mmol/L Chloride 102 (98-107) mmol/L Carbon Dioxide 31 H (22-30) mmol/L Anion Gap 7 mmol/L BUN 12 (7-17) mg/dL Creatinine 0.57 (0.52-1.04) mg/dL Est GFR (CKD-EPI)AfAm >90 (>60 ml/min/1.73 sqM) Est GFR (CKD-EPI)NonAf >90 (>60 ml/min/1.73 sqM) Glucose 94 (74-99) mg/dL Calcium 9.6 (8.4-10.2) mg/dL Disposition Clinical Impression: Cellulitis Disposition: HOME SELF-CARE Condition: Fair Instructions (If sedation given, give patient instructions): Cellulitis (ED) Prescriptions: Cephalexin [Keflex] 500 mg PO Q6HR 5 Days #20 cap Is patient prescribed a controlled substance at d/c from ED?: No Referrals: Cesario Castro DO [Primary Care Provider] - 1-2 days Time of Disposition: 18:27
[2025-02-27 17:53] LABS: Basophils # (A) 0.04 10*3/uL (0.00-0.10); Basophils % (A) 0.6 %; Eosinophils # (A) 0.05 10*3/uL (0.04-0.35); Eosinophils % (A) 0.8 %; HCT 36.2 % (37.2-46.3); HGB 12.7 g/dL (12.0-15.0); Lymphocytes # (A) 2.51 10*3/uL (0.90-5.00); Lymphocytes % (A) 38.4 %; MCH 32.6 pg (27.0-32.0); MCHC 35.1 g/dL (32.0-37.0); MCV 92.8 fL (80.0-97.0); Monocytes # (A) 0.36 10*3/uL (0.20-1.00); Monocytes % (A) 5.5 %; Neutrophils # (A) 3.56 10*3/uL (1.80-7.70); Neutrophils % (A) 54.4 %; Platelet Count 255 10*3/uL (140-440); RBC 3.90 10*6/uL (4.10-5.20); RDW 11.8 % (11.5-14.5); WBC 6.54 10*3/uL (4.50-10.00)
[2025-02-27] MEDS: SODIUM CHLORIDE 0.9% 1,000 ML IV STA (18:00)
[2025-02-27 18:04] LABS: African American GFR (CKD) >90 (>60 ml/min/1.73 sqM); Anion Gap 7 mmol/L; Blood Urea Nitrogen 12 mg/dL (7-17); Calcium 9.6 mg/dL (8.4-10.2); Carbon Dioxide 31 mmol/L (22-30); Chloride 102 mmol/L (98-107); Glucose 94 mg/dL (74-99); Non-African American GFR(CKD) >90 (>60 ml/min/1.73 sqM); Potassium 3.5 mmol/L (3.5-5.1); Sodium 140 mmol/L (137-145)
[2025-02-27] MEDS: ONDANSETRON 4 MG/2 ML VIAL IVP STA (18:07)
[2025-02-27 18:59] VITALS: BP 193/83; PULSE 72; RESP 19; TEMP 98.2
== END 2025-02-27 18:59 | disposition home or self-care (01) ==
LOC: EC 15:41
DX: L03.116 Cellulitis of left lower limb (principal); Z88.2 Allergy status to sulfonamides; Z88.8 Allergy status to other drugs, medicaments and biological substances; W57.XXXA Bitten or stung by nonvenomous insect and other nonvenomous arthropods, initial encounter
CPT/HCPCS: 36415; 80048; 85025; 99283; 96374; 96361; J2405